=== PATIENT | female | born 1950 | race Hispanic/Latino ===

== ENCOUNTER 2019-02-20 16:48 | Emergency (ER) | payer MEDICARE, OTHER ==
[2019-02-20] MEDS ORDERED: SODIUM CHLORIDE 0.9% 1000ML 1,000 ML IV STA (17:20)
[2019-02-20] MEDS ORDERED: ONDANSETRON HCL INJ 2MG/ML 2ML 2 MG/ML VIAL IV STA (17:20)
--- NOTE | 2019-02-20 17:26 | NUR ---
PATIENT TO ROOM 2
--- NOTE | 2019-02-20 18:16 | Diagnostic Imaging Report ---
Examination: Single AP view of the chest. COMPARISON: None. INDICATION: Shortness of breath DISCUSSION: Lines/tubes: None. Lungs: The lungs are well inflated and clear. There is no evidence of pneumonia or pulmonary edema. Pleura: There is no pleural effusion or pneumothorax. Heart and mediastinum: The heart and the mediastinum are unremarkable. Bones and soft tissues: No acute bony abnormalities. Degenerative changes in the thoracic spine. IMPRESSION: 1. No acute cardiopulmonary abnormalities. Signed by: Dr. Stef Day M.D. on 02/20/2019 6:12 PM
[2019-02-20] MEDS ORDERED: METFORMIN HCL500 M1 (18:27)
[2019-02-20] MEDS ORDERED: LEVOTHYROXINE25 MCG (18:27)
[2019-02-20] MEDS ORDERED: LOSARTAN-HCTZ1 EAC2 (18:27)
[2019-02-20] MEDS ORDERED: GLIPIZIDE ER10 MG (18:27)
[2019-02-20] MEDS ORDERED: CITALOPRAM HBR40 MG (18:27)
[2019-02-20 18:35] LABS: BASOPHILS # (AUTO) 0.1 (0.0-0.1); BASOPHILS % 0.6 % (0.0-1.0); EOSINOPHILS # (AUTO) 0.1 (0.0-0.4); EOSINOPHILS % 0.6 % (0.0-6.0); HEMATOCRIT 36.7 % (34.2-44.1); HEMOGLOBIN 11.8 g/dL (12.0-16.0); LYMPHOCYTES # (AUTO) 3.3 (1.0-3.2); LYMPHOCYTES % 39.9 % (18.0-39.1); MEAN CORPUSCULAR HEMOGLOBIN 27.3 pg (28-32); MEAN CORPUSCULAR HGB CONC 32.2 g/dL (31-35); MONOCYTES # (AUTO) 0.4 (0.2-0.8); MONOCYTES % 5.3 % (4.4-11.3); NEUTROPHILS # (AUTO) 4.4 (2.1-6.9); NEUTROPHILS % 53.5 % (38.7-80.0); PLATELET COUNT 288 x10e3/uL (140-360); RED BLOOD COUNT 4.32 x10e6/uL (3.6-5.1); RED CELL DISTRIBUTION WIDTH 13.3 % (11.7-14.4)
[2019-02-20 18:36] LABS: CLARITY,URINE CLEAR (CLEAR); COLOR,URINE YELLOW (YELLOW)
[2019-02-20 18:37] LABS: LEUKOCYTE ESTERASE ,URINE TRACE (NEGATIVE); NITRITE,URINE NEGATIVE (NEGATIVE)
[2019-02-20 18:38] LABS: PROTEIN,URINE DIPSTICK TRACE (NEGATIVE)
[2019-02-20 18:39] LABS: KETONES,URINE NEGATIVE (NEGATIVE); URINE UROBILINOGEN 0.2 mg/dL (0.2 - 1)
[2019-02-20 18:40] LABS: BACTERIA,URINE RARE /HPF; BILIRUBIN,URINE NEGATIVE (NEGATIVE); EPITHELIAL CELLS,URINE FEW /LPF; RBC,URINE 0-5 /HPF (0-5); WBC,URINE (MAN) 0-5 /HPF (0-5)
[2019-02-20 18:42] LABS: INR 0.86; PROTHROMBIN TIME 12.2 seconds (11.9-14.5)
[2019-02-20 18:43] LABS: PARTIAL THROMBOPLASTIN TIME 24.1 seconds (23.8-35.5)
[2019-02-20 18:49] LABS: ALANINE AMINOTRANSFERASE 11 IU/L (0-55); ALBUMIN 3.6 g/dL (3.5-5.0); ALBUMIN/GLOBULIN RATIO 1.2 (0.8-2.0); ALKALINE PHOSPHATASE 65 IU/L (40-150); ANION GAP 15.4 mmol/L (8-16); BLOOD UREA NITROGEN 11 mg/dL (7-26); BUN/CREATININE RATIO 14 (6-25); CALCIUM 9.6 mg/dL (8.4-10.2); CARBON DIOXIDE 28 mmol/L (22-29); CHLORIDE 102 mmol/L (98-107); CREATINE KINASE 57 IU/L (29-168); EST GLOMERULAR FILTRATION RATE > 60 ML/MIN (60-); GLUCOSE 127 mg/dL (74-118); LIPASE 23 U/L (8-78); POTASSIUM 3.4 mmol/L (3.5-5.1); SODIUM 142 mmol/L (136-145)
[2019-02-20] MEDS ORDERED: MORPHINE SULFATE INJ 4 MG/ML INJ 1ML IV ONE (19:00)
--- NOTE | 2019-02-20 19:00 | NUR ---
REPORT TO [facility]
[2019-02-20] MEDS ORDERED: SODIUM CHLORIDE 0.9% 50ML 50 ML ONE (19:14)
[2019-02-20] MEDS ORDERED: IOPAMIDOL 370 MG/ML 200 ML INFUS..BTL INJ ONE (19:14)
--- NOTE | 2019-02-20 20:13 | Diagnostic Imaging Report ---
EXAMINATION: CT of the abdomen and pelvis with contrast. TECHNIQUE: Spiral CT images of the abdomen and pelvis were performed from the lung bases to the lesser trochanters after the intravenous administration of 100 cc of Isovue 370 and the oral administration of water. Coronal and sagittal reformatted images were obtained. COMPARISON: None. CLINICAL HISTORY:Abdominal pain, black stool, nausea and vomiting and diarrhea DISCUSSION: ABDOMEN/PELVIS: LOWER THORAX:Mild bilateral lower lobe dependent atelectasis. HEPATOBILIARY: Diffusely decreased attenuation of the hepatic parenchyma compared to the spleen, consistent with steatosis. No focal lesions. Normal contour. No intra or extrahepatic biliary ductal dilation. GALLBLADDER: No radio-opaque stones or sludge. No wall thickening. SPLEEN: No splenomegaly. PANCREAS: No focal masses or ductal dilatation. [id number] pancreatic atrophy. ADRENALS: No adrenal nodules. KIDNEYS/URETERS: Punctate nonobstructing calculus in the left inferior pole (series 2, image 36). No other renal or ureteral calculi. 3.6 x 2.9 cm circumscribed fluid density structure in the left renal sinus, consistent with a peripelvic cyst. No hydronephrosis. Mild right pelviectasis. No solid enhancing masses. Subcentimeter hypodense lesion in the right inferior pole is too small to characterize but likely represents a small cyst. PELVIC ORGANS/BLADDER: Bladder is unremarkable. Uterus unremarkable. No adnexal masses. PERITONEUM/RETROPERITONEUM: No free air or fluid. LYMPH NODES: No intra-abdominal, retroperitoneal, pelvic or inguinal lymphadenopathy. VESSELS: The celiac trunk,superior and inferior mesenteric and bilateral renal arteries are patent The portal, superior mesenteric and splenic veins are patent. GI TRACT: No bowel dilation or evidence of obstruction. Appendix is well identified and normal in caliber. No pericolonic inflammatory changes. Sigmoid diverticulosis, without diverticulitis. Stomach is unremarkable. BONES AND SOFT TISSUE: No aggressive lytic lesions. Mild degenerative disc changes in the lumbosacral spine. No soft tissue abnormalities. IMPRESSION: 1. No acute abdominopelvic abnormalities. No bowel dilation or evidence of obstruction. No focal inflammatory changes or wall thickening. 2. Punctate nonobstructing calculus in the left inferior pole. No other renal or ureteral or bladder calculi, hydronephrosis or obstruction. 3. Mild right pelviectasis. 4. Diffuse hepatic steatosis. Signed by: Juli WayneD. on 02/20/2019 8:09 PM
[2019-02-20 20:43] VITALS: BP 120/63
== END 2019-02-20 20:52 | disposition home or self-care (01) ==
LOC: ER 16:48
DX: R10.84 Generalized abdominal pain (principal); I10 Essential (primary) hypertension; E11.9 Type 2 diabetes mellitus without complications; Z79.84 Long term (current) use of oral hypoglycemic drugs
CPT/HCPCS: 36415; 71045; 74177; 80053; 81001; 82550; 82553; 83690; 84484; 85025; 85610; 85730; 93005; 99283; J2405; J7030; Q9967

== ENCOUNTER → 2020-12-17 | Outpatient (CLI) | payer MEDICARE ==
[~2020-12-17] MED LIST: CITALOPRAM HBR40 MG; GLIPIZIDE ER10 MG; LEVOTHYROXINE25 MCG; LOSARTAN-HCTZ1 EAC2; METFORMIN HCL500 M1
== END ==
LOC: RAD 11:49
PROVIDERS: ATTEND Family Medicine
DX: M25.562 Pain in left knee (principal); M25.561 Pain in right knee
CPT/HCPCS: 93970

== ENCOUNTER 2021-12-12 14:04 | Observation (INO) | payer MEDICARE ==
[~2021-12-12] VITALS: Ht 160 cm; Wt 61.3 kg
[2021-12-12] MEDS ORDERED: SODIUM CHLORIDE 0.9% 1000ML 500 ML IV ONE (15:15)
[2021-12-12 15:24] LABS: BASOPHILS % 0.1 % (0.0-1.0); EOSINOPHILS # (AUTO) 0.1 (0.0-0.4); EOSINOPHILS % 0.7 % (0.0-6.0); HEMATOCRIT 41.3 % (34.2-44.1); HEMOGLOBIN 13.8 g/dL (12.0-16.0); LYMPHOCYTES # (AUTO) 2.7 (1.0-3.2); LYMPHOCYTES % 25.6 % (18.0-39.1); MEAN CORPUSCULAR HEMOGLOBIN 27.7 pg (28-32); MEAN CORPUSCULAR HGB CONC 33.4 g/dL (31-35); MEAN CORPUSCULAR VOLUME 82.9 fL (81-99); MONOCYTES # (AUTO) 0.6 (0.2-0.8); MONOCYTES % 5.2 % (4.4-11.3); NEUTROPHILS # (AUTO) 7.1 (2.1-6.9); NEUTROPHILS % 67.5 % (38.7-80.0); PLATELET COUNT 283 x10e3/uL (140-360); RED BLOOD COUNT 4.98 x10e6/uL (3.6-5.1); RED CELL DISTRIBUTION WIDTH 13.1 % (11.7-14.4)
[2021-12-12 15:49] LABS: ALBUMIN 3.3 g/dL (3.5-5.0); ANION GAP 16.5 mmol/L (8-16); CALCIUM 8.1 mg/dL (8.4-10.2); CREATININE, SERUM 1.23 mg/dL (0.57-1.11); POTASSIUM 3.5 mmol/L (3.5-5.1)
[2021-12-12] MEDS: ONDANSETRON HCL INJ 2MG/ML 2ML 2 MG/ML VIAL IV PRN ×2 (16:37→19:55)
[2021-12-12] MEDS ORDERED: ONDANSETRON HCL INJ 2MG/ML 2ML 2 MG/ML VIAL IV PRN (16:45)
[2021-12-12] MEDS ORDERED: SODIUM CHLORIDE 0.9% 1000ML 1,000 ML IV SCH (16:45)
[2021-12-12] MEDS ORDERED: DEXTROSE 50% SYRINGE 50 ML IV PRN (19:45)
[2021-12-12 20:25] VITALS: BP 125/75
[2021-12-12 21:00] VITALS: BP 125/75
[2021-12-12] MEDS: INSULIN REGULAR, HUMAN 100 UNIT/1 ML SQ SCH (21:00)
[2021-12-13] VITALS: BP 103/60
[2021-12-13] MEDS ORDERED: POTASSIUM CHLORIDE 20 MEQ TAB CR PO STA (03:46)
[2021-12-13] MEDS ORDERED: SODIUM CHLORIDE 0.9% 1000ML 1,000 ML IV SCH (03:53)
[2021-12-13 04:00] VITALS: BP 107/62
[2021-12-13] MEDS ORDERED: GUAIFENESIN/DEXTROMETHORPHAN LIQD 5 ML UDC PO PRN (04:00)
[2021-12-13] MEDS ORDERED: HYDRALAZINE HCL 20 MG/ML VIAL IV PRN (04:00)
[2021-12-13] MEDS ORDERED: MELATONIN 3 MG TAB PO PRN (04:00)
[2021-12-13] MEDS ORDERED: ACETAMINOPHEN 325 MG TAB PO PRN (04:00)
[2021-12-13 06:50] LABS: BASOPHILS % 0.1 % (0.0-1.0); EOSINOPHILS # (AUTO) 0.2 (0.0-0.4); EOSINOPHILS % 1.8 % (0.0-6.0); HEMOGLOBIN 10.9 g/dL (12.0-16.0); LYMPHOCYTES # (AUTO) 3.3 (1.0-3.2); LYMPHOCYTES % 34.5 % (18.0-39.1); MEAN CORPUSCULAR HEMOGLOBIN 27.8 pg (28-32); MEAN CORPUSCULAR VOLUME 84.2 fL (81-99); MONOCYTES # (AUTO) 0.7 (0.2-0.8); MONOCYTES % 7.7 % (4.4-11.3); NEUTROPHILS # (AUTO) 5.2 (2.1-6.9); NEUTROPHILS % 55.1 % (38.7-80.0); PLATELET COUNT 205 x10e3/uL (140-360); RED BLOOD COUNT 3.92 x10e6/uL (3.6-5.1)
[2021-12-13 07:13] LABS: ANION GAP 11.5 mmol/L (8-16); CALCIUM 7.8 mg/dL (8.4-10.2); CREATININE, SERUM 0.97 mg/dL (0.57-1.11); POTASSIUM 3.5 mmol/L (3.5-5.1)
[2021-12-13] MEDS: INSULIN REGULAR, HUMAN 100 UNIT/1 ML SQ SCH (07:30)
[2021-12-13] MEDS ORDERED: LEVOTHYROXINE SODIUM 25 MCG TABLET PO SCH (07:30)
[2021-12-13 08:00] VITALS: BP 130/69
[2021-12-13] MEDS ORDERED: GLIPIZIDE 2.5 MG TABCR PO SCH (08:00)
[2021-12-13] MEDS ORDERED: METFORMIN HCL 500 MG TAB CR PO SCH (09:00)
[2021-12-13] MEDS ORDERED: LOSARTAN POTASSIUM 100 MG TAB PO SCH (09:00)
[2021-12-13] MEDS ORDERED: MULTIVITAMINS/MINERALS TAB PO SCH (09:00)
[2021-12-13] MEDS ORDERED: CITALOPRAM HYDROBROMIDE 20 MG TAB PO SCH (09:00)
[2021-12-13 09:36] VITALS: BP 130/69
[2021-12-13] MEDS ORDERED: MULTIVITAMINS1 EAC6 PO (09:50)
[2021-12-13] MEDS ORDERED: LOSARTAN-HCTZ1 EAC2 PO (09:50)
[2021-12-13] MEDS ORDERED: GLIPIZIDE ER5 MG PO (09:50)
== END 2021-12-13 11:16 | disposition home or self-care (01) ==
LOC: ER 14:14 → INTOOBSV 16:32 → ERHOLD 16:32 → MED/SURG2 20:42
PROVIDERS: ADMIT Internal Medicine Critical Care Medicine; ATTEND Internal Medicine Critical Care Medicine
DX: U07.1 COVID-19 (principal); N17.9 Acute kidney failure, unspecified; E11.9 Type 2 diabetes mellitus without complications; I10 Essential (primary) hypertension; F32.A Depression, unspecified; R79.89 Other specified abnormal findings of blood chemistry; E03.9 Hypothyroidism, unspecified; Z79.4 Long term (current) use of insulin; E86.0 Dehydration
CPT/HCPCS: 0223U; 36415 ×2; 71045; 80048; 80053; 82948 ×2; 84484; 85025 ×2; 93005; 99251; 99284; G0378 ×2; J2405; J7030 ×2

== ENCOUNTER 2022-06-19 13:53 | Emergency (ER) | payer MEDICARE ==
[~2022-06-19] VITALS: Ht 160 cm; Wt 61.2 kg
[~2022-06-19 13:53] MED LIST changes: +GLIPIZIDE ER5 MG PO; +LOSARTAN-HCTZ1 EAC2 PO; +MULTIVITAMINS1 EAC6 PO
[2022-06-19 14:29] LABS: BASOPHILS % 0.1 % (0.0-1.0); EOSINOPHILS # (AUTO) 0.2 (0.0-0.4); HEMATOCRIT 39.3 % (34.2-44.1); HEMOGLOBIN 11.9 g/dL (12.0-16.0); LYMPHOCYTES # (AUTO) 0.5 (1.0-3.2); LYMPHOCYTES % 6.7 % (18.0-39.1); MEAN CORPUSCULAR HEMOGLOBIN 27.2 pg (28-32); MEAN CORPUSCULAR HGB CONC 30.3 g/dL (31-35); MEAN CORPUSCULAR VOLUME 89.7 fL (81-99); MONOCYTES # (AUTO) 0.3 (0.2-0.8); MONOCYTES % 3.5 % (4.4-11.3); NEUTROPHILS # (AUTO) 6.9 (2.1-6.9); NEUTROPHILS % 87.3 % (38.7-80.0); PLATELET COUNT 261 x10e3/uL (140-360); RED BLOOD COUNT 4.38 x10e6/uL (3.6-5.1); RED CELL DISTRIBUTION WIDTH 13.8 % (11.7-14.4)
[2022-06-19] MEDS ORDERED: SODIUM CHLORIDE 0.9% 1000ML 1,000 ML IV ONE (14:30)
[2022-06-19] MEDS ORDERED: ONDANSETRON HCL INJ 2MG/ML 2ML 2 MG/ML VIAL IV PRN (14:30)
[2022-06-19 14:43] LABS: ALBUMIN 3.8 g/dL (3.5-5.0); ALBUMIN/GLOBULIN RATIO 1.4 (0.8-2.0); ALKALINE PHOSPHATASE 62 IU/L (40-150); ANION GAP 17.8 mmol/L (8-16); BLOOD UREA NITROGEN 18 mg/dL (7-26); BUN/CREATININE RATIO 12 (6-25); CALCIUM 9.1 mg/dL (8.4-10.2); CARBON DIOXIDE 24 mmol/L (22-29); CHLORIDE 102 mmol/L (98-107); CREATININE, SERUM 1.46 mg/dL (0.57-1.11); GLUCOSE 148 mg/dL (74-118); POTASSIUM 3.8 mmol/L (3.5-5.1); SODIUM 140 mmol/L (136-145)
[2022-06-19 14:45] LABS: ALANINE AMINOTRANSFERASE < 6 IU/L (0-55); AMORPHOUS SEDIMENT,URINE MODERATE (FEW); BACTERIA,URINE FEW /HPF; CLARITY,URINE SL CLOUDY (CLEAR); COLOR,URINE STRAW (YELLOW); EPITHELIAL CELLS,URINE FEW /LPF; KETONES,URINE TRACE (NEGATIVE); LEUKOCYTE ESTERASE ,URINE TRACE (NEGATIVE); NITRITE,URINE NEGATIVE (NEGATIVE); PROTEIN,URINE DIPSTICK 1+ (NEGATIVE); URINE UROBILINOGEN 0.2 mg/dL (0.2 - 1)
[2022-06-19] MEDS ORDERED: ACETAMINOPHEN-1 EAC4 PO (16:22)
[2022-06-19] MEDS ORDERED: DICYCLOMINE HCL20 MG PO (16:26)
[2022-06-19] MEDS ORDERED: ONDANSETRON ODT4 MG PO (16:26)
[2022-06-19] MEDS ORDERED: PREDNISONE20 MG PO (16:28)
[2022-06-19] MEDS ORDERED: HYDROCODONE/APAP 5MG-325MG TAB ONE (16:29)
[2022-06-19] MEDS ORDERED: HYDROCODONE/APAP 5MG-325MG TAB PO ONE (16:30)
== END 2022-06-19 16:45 | disposition home or self-care (01) ==
LOC: ER 14:02
DX: R50.9 Fever, unspecified (principal); N28.1 Cyst of kidney, acquired; R11.2 Nausea with vomiting, unspecified; R10.30 Lower abdominal pain, unspecified
CPT/HCPCS: 36415; 74176; 80053; 81001; 85025; 87086; 99284; J2405; J7030